=== PATIENT | female | born 2000 | race Two or more races ===

== ENCOUNTER 2019-04-25 12:13 | Emergency (ER) | payer OTHER ==
[~2019-04-25] VITALS: Ht 162.6 cm; Wt 65.8 kg
[~2019-04-25 12:13] MED LIST: ADVAIR 100/50; FLOVENT; VENTOLIN; [UNRECOGNIZED DRUG - REMARK]
== END 2019-04-25 18:56 | disposition home or self-care (01) ==
LOC: ER 12:13
DX: J45.998 Other asthma (principal)